=== PATIENT | female | born 1950 | race Caucasian/White ===

== ENCOUNTER → 2024-08-19 08:11 | Outpatient (BNVA) | payer MEDICARE, SELFPAY | PROVIDERS: PCP Family Medicine; Referring Provider Family Medicine; Visit Provider Specialist | DX: R26.81 Unsteadiness on feet (principal); R26.9 Unspecified abnormalities of gait and mobility; G20.C Parkinsonism, unspecified | CPT/HCPCS: 99205 ==

== ENCOUNTER → 2025-01-18 11:28 | Outpatient (BNVA) | payer MEDICARE, SELFPAY | PROVIDERS: PCP Family Medicine; Referring Provider Family Medicine; Visit Provider Specialist | DX: G20.C Parkinsonism, unspecified (principal); R26.81 Unsteadiness on feet; R41.3 Other amnesia | CPT/HCPCS: 36415; 82542; 83520; 84439; 84443; 99215 ==